=== PATIENT | male | born 1960 | race Caucasian/White ===

== ENCOUNTER 2018-05-29 20:41 | Emergency (ER) | payer BC ==
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
[2018-05-29] MEDS ORDERED: TETRACAINE HCL 0.5% 2ML OPTH ONE (21:22)
[2018-05-29] MEDS ORDERED: FLUORESCEIN SODIUM 0.6 MG/WRAP ONE (21:37)
[2018-05-29] MEDS ORDERED: HYDROCODONE/APAP 10/325 TAB ONE (21:49)
[2018-05-29] MEDS ORDERED: ERYTHROMYCIN 3.5GM OPTH OINT ONE (22:04)
--- NOTE | 2018-05-29 22:05 | EDPHYS ---
Physician Documentation [facility] Name: Remberto Diaz Age: 57 yrs Sex: Male : 1960 Arrival Date: 05/29/2018 Time: 20:45 Bed 15 Private MD: Sridhar Palmer V ED Physician Quoc Hobbs HPI: 05/29 21:45 This 57 yrs old Male presents to ER via Wheelchair with complaints of Foreign ps1 Body In Eye. 21:45 patient has FBS in bilateral eyes. Painful, rated as severe. History of recent cataract ps1 surgery in [place] 4 months ago. 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 . Historical: - Allergies: 21:09 No Known Allergies; aj1 - Home Meds: 21:09 Lexapro Oral [Active]; Allopurinol Oral [Active]; "cataract eye drops" [Active]; aj1 - PMHx: 21:09 Gout; aj1 - PSHx: 21:09 cataract surgery; aj1 21:12 elbow surgery; neck surgery; aj1 - Immunization history:: Flu vaccine is not up to date. - Ebola Screening: : Patient denies travel to an Ebola-affected area in the 21 days before illness onset. - Social history:: Smoking status: Patient uses tobacco products, unknown amount. ROS: 21:45 Constitutional: Negative for fever, chills, and weight loss, ENT: Negative for injury, ps1 pain, and discharge, Neck: Negative for injury, pain, and swelling, Cardiovascular: Negative for chest pain, palpitations, and edema, Respiratory: Negative for shortness of breath, cough, wheezing, and pleuritic chest pain, Abdomen/GI: Negative for abdominal pain, nausea, vomiting, diarrhea, and constipation, Back: Negative for injury and pain, MS/Extremity: Negative for injury and deformity, Skin: Negative for injury, rash, and discoloration, Neuro: Negative for headache, weakness, numbness, tingling, and seizure. 21:45 Eyes: Positive for foreign body sensation. Exam: 21:45 Constitutional: This is a well developed, well nourished patient who is awake, alert, ps1 and in no acute distress. Head/Face: Normocephalic, atraumatic. Cardiovascular: Regular rate and rhythm. No gallops, murmurs, or rubs. Normal PMI, no JVD. No pulse deficits. Respiratory: Lungs have equal breath sounds bilaterally, clear to auscultation and percussion. No rales, rhonchi or wheezes noted. No increased work of breathing, no retractions or nasal flaring. Abdomen/GI: Soft, non-tender, with normal bowel sounds. No distension or tympany. No guarding or rebound. No evidence of tenderness throughout. Skin: Warm, dry with normal turgor. Normal color with no rashes, no lesions, and no evidence of cellulitis. MS/ Extremity: Pulses equal, no cyanosis. Neurovascular intact. Full, normal range of motion. Neuro: Awake and alert, GCS 15, oriented to person, place, time, and situation. Cranial nerves II-XII grossly intact. Sensory grossly intact. 21:45 Psych: Behavior/mood is anxious. 21:45 Eyes: Conjunctiva: injected, pitting c/w UV keratitis. fluro demonstrated pitting. Pain ps1 completely resolved with tetracaine. Vital Signs: 21:09 BP 156 / 95; Pulse 91; Resp 20; Temp 97.2(TE); Pulse Ox 97% on R/A; Weight 104.33 kg aj1 (R); Height 6 ft. 1 in. (185.42 cm) (R); Pain 10/10; 22:20 BP 148 / 81; Pulse 90; Resp 20 S; Pulse Ox 97% on R/A; cc3 21:09 Body Mass Index 30.34 (104.33 kg, 185.42 cm) aj MDM: 21:45 Data reviewed: vital signs, nurses notes, and as a result, I will discharge patient, ps1 administer antibiotics e-mycin ointment and norco. 22:04 Patient medically screened. ps1 Administered Medications: 21:50 Drug: [place] 10 mg-325 mg 1 tabs Route: PO; cc3 22:30 Follow up: Response: No adverse reaction; Pain is decreased cc3 22:15 Drug: ERYTHromycin Ointment 1 application Route: Ophthalmic; Site: both eyes; cc3 22:30 Follow up: Response: No adverse reaction cc3 Disposition: 05/29/18 22:04 Discharged to Home. Impression: Ultraviolet Keratitis. - Condition is Stable. - Discharge Instructions: Ultraviolet Keratitis, Aeih-bd-Geki. - Prescriptions for ketorolac 0.5 % Ophthalmic drops - instill 1 drop by OPHTHALMIC route 4 times per day; 1 bottle. Tylenol- Codeine #3 300-30 mg Oral Tablet - take 2 tablet by ORAL route every 6 hours As needed; 30 tablet. Erythromycin 5 mg/gram (0.5 %) Ophthalmic Ointment - apply 1 centimeter by OPHTHALMIC route 2-3 times daily for 7 days; 1 tube. - Medication Reconciliation Form, Thank You Letter, Antibiotic Education, Prescription Opioid Use form. - Follow up: Emergency Department; When: As needed; Reason: Worsening of condition. Follow up: Private Physician; When: 48 Hours; Reason: Further diagnostic work-up, Recheck today's complaints, Continuance of care, Re-evaluation by your physician. - Problem is new. - Symptoms have improved. Signatures: Makeda Land, RN RN aj1 Quoc Hobbs MD MD ps1 Courtney Chen cc3 Corrections: (The following items were deleted from the chart) 21:59 21:45 Eyes: Conjunctiva: injected, pitting c/w UV keratitis. ps1 ps1 22:30 22:04 05/29/2018 22:04 Discharged to Home. Impression: Ultraviolet Keratitis. Condition cc3 is Stable. Forms are Medication Reconciliation Form, Thank You Letter, Antibiotic Education, Prescription Opioid Use. Follow up: Emergency Department; When: As needed; Reason: Worsening of condition. Follow up: Private Physician; When: 48 Hours; Reason: Further diagnostic work-up, Recheck today's complaints, Continuance of care, Re-evaluation by your physician. Problem is new. Symptoms have improved. ps1
--- NOTE | 2018-05-29 22:05 | ER ---
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 At first it was just the left eye, so he tried to flush that eye, but then both eyes began hurting, so he tried flushing both of his eye, but the pain just got worse. Patient will not open his eyes in triage, states that it hurts too bad. Patient also reports that he had cataract surgery 4 months ago. Transition of care: patient was not received from another setting of care. Onset of symptoms was May 29, 2018 at 15:00. Risk Assessment: Do you want to hurt yourself or someone else? Patient reports no desire to harm self or others. Initial Sepsis Screen: Does the patient meet any 2 criteria? No. Patient's initial sepsis screen is negative. Does the patient have a suspected source of infection? No. Patient's initial sepsis screen is negative. Care prior to arrival: None. 21:06 Method Of Arrival: Wheelchair aj1 21:06 Acuity: RAKESH 4 aj1 Triage Assessment: 21:09 General: Appears in no apparent distress. uncomfortable, Behavior is cooperative, aj1 anxious, restless. Pain: Complains of pain in right eye and left eye Pain currently is 10 out of 10 on a pain scale. EENT: Reports pain to both eyes, states that he feels like he got sand in his eyes. Neuro: Level of Consciousness is awake, alert, obeys commands. Cardiovascular: Patient's skin is warm and dry. Respiratory: Airway is patent Respiratory effort is even, unlabored, Respiratory pattern is regular, symmetrical. Historical: - Allergies: 21: No Known Allergies; aj1 - Home Meds: 21:09 Lexapro Oral [Active]; Allopurinol Oral [Active]; "cataract eye drops" [Active]; aj1 - PMHx: 21:09 Gout; aj1 - PSHx: 21:09 cataract surgery; aj1 21:12 elbow surgery; neck surgery; aj1 - Immunization history:: Flu vaccine is not up to date. - Ebola Screening: : Patient denies travel to an Ebola-affected area in the 21 days before illness onset. - Social history:: Smoking status: Patient uses tobacco products, unknown amount. Screenin:15 Abuse screen: Denies threats or abuse. Denies injuries from another. Nutritional cc3 screening: No deficits noted. Tuberculosis screening: No symptoms or risk factors identified. Fall Risk Ambulatory Aid- None/Bed Rest/Nurse Assist (0 pts). Gait- Normal/Bed Rest/Wheelchair (0 pts) Mental Status- Oriented to own ability (0 pts). Assessment: 21:15 General: Appears distressed, uncomfortable, Behavior is cooperative, anxious. Pain: cc3 Complains of pain in left eye and right eye. Neuro: Level of Consciousness is awake, alert, obeys commands, Oriented to person, place, time, situation, Appropriate for age. Cardiovascular: Denies chest pain. Respiratory: Airway is patent Respiratory effort is even, unlabored, Respiratory pattern is regular, symmetrical. GI: Abdomen is round obese. : No signs and/or symptoms were reported regarding the genitourinary system. EENT: Reports pain in right eye and left eye. Derm: No signs and/or symptoms reported regarding the dermatologic system. Musculoskeletal: Circulation, motion, and sensation intact. Range of motion: intact in all extremities. 22:30 Reassessment: Patient appears in no apparent distress at this time. Patient and/or cc3 family updated on plan of care and expected duration. Pain level reassessed. Patient is alert, oriented x 3, equal unlabored respirations, skin warm/dry/pink. Dr. Hobbs discharged the patient home with prescription given. No IV cannula in situ. Patient left ER vitally stable and ambulatory with his . Vital Signs: 21:09 BP 156 / 95; Pulse 91; Resp 20; Temp 97.2(TE); Pulse Ox 97% on R/A; Weight 104.33 kg aj1 (R); Height 6 ft. 1 in. (185.42 cm) (R); Pain 10/10; 22:20 BP 148 / 81; Pulse 90; Resp 20 S; Pulse Ox 97% on R/A; cc3 21:09 Body Mass Index 30.34 (104.33 kg, 185.42 cm) aj1 ED Course: 20:45 Patient arrived in ED. mr 20:45 Sridhar Palmer MD is Private Physician. mr 20:56 Quoc Hobbs MD is Attending Physician. ps1 21:08 Triage completed. aj1 21:09 Arm band placed on Patient placed in an exam room. aj1 21:15 Courtney Chen is Primary Nurse. cc3 21:15 Patient has correct armband on for positive identification. Bed in low position. Call cc3 light in reach. Side rails up X 1. Pulse ox on. NIBP on. 22:30 No provider procedures requiring assistance completed. Patient did not have IV access cc3 during this emergency room visit. Administered Medications: 21:50 Drug: [place] 10 mg-325 mg 1 tabs Route: PO; cc3 22:30 Follow up: Response: No adverse reaction; Pain is decreased cc3 22:15 Drug: ERYTHromycin Ointment 1 application Route: Ophthalmic; Site: both eyes; cc3 22:30 Follow up: Response: No adverse reaction cc3 Outcome: 22:04 Discharge ordered by . ps1 22:30 Patient left the ED. cc3 22:30 Discharged to home ambulatory, with family. cc3 22:30 Condition: stable 22:30 Discharge instructions given to patient, family, Instructed on discharge instructions, follow up and referral plans. medication usage, Demonstrated understanding of instructions, follow-up care, medications, Prescriptions given X 3. Signatures: Makeda Land RN RN aj Cyndy Vargas mr Quoc Hobbs MD MD ps1 Courtney Chen cc3
== END 2018-05-29 22:30 | disposition home or self-care (01) ==
LOC: ER 20:41
DX: H16.133 Photokeratitis, bilateral (principal); W89.8XXA Exposure to other man-made visible and ultraviolet light, initial encounter; Y99.0 Civilian activity done for income or pay; M10.9 Gout, unspecified; Z79.899 Other long term (current) drug therapy; Z72.0 Tobacco use
CPT/HCPCS: 99283

== ENCOUNTER 2018-08-07 01:18 | Emergency (ER) | payer BC ==
--- OUTSIDE RECORDS SUMMARY | 2018-08-07 01:21 | XMS REPORT | Clinical Summary ---
:1960 Author Organization [facility] Address [address] [place] [address] Care Team Providers Name Role Phone Asked, [...] Lipoma of neck (Primary PA-C Dx) after 08/06/2017 Family History Medical History Relation Name Comments [...] Last Done Comments COLON CANCER SCREENING 2011 SHINGLES VACCINES (1 of 2) 2011 INFLUENZA VACCINE 01/21/2018 Results Not on fileafter 08/06/2017 Insurance Payer Benefit Plan / Group Subscriber ID Type Phone Address BCBS BCBS CHOICE PPO/FEDERAL EMPL PPO xxxxxxxxxxxx PPO Advance Directives Patient has advance care planning documents on file. For more information, please contact:Steven [id number] [place] [address]
[2018-08-07] MEDS ORDERED: ASPIRIN 81 MG CHEWABLE TABLET ONE (01:36)
[2018-08-07] MEDS ORDERED: NA CHLORIDE 0.9% 1,000 ML ONE ×2 (01:38→03:11)
[2018-08-07 01:43] LABS: Protime INR 0.93
[2018-08-07] MEDS ORDERED: MORPHINE 4 MG/ML SYR ONE ×2 (01:44→01:59)
[2018-08-07] MEDS ORDERED: ONDANSETRON 4 MG/2 ML VIAL ONE (01:44)
[2018-08-07] MEDS ORDERED: CLOPIDOGREL 75 MG TABLET ONE (01:44)
[2018-08-07] MEDS ORDERED: HEPARIN 5000 UNIT/ML 1 ML VIAL ONE (01:52)
[2018-08-07] MEDS ORDERED: HEPARIN/D5W 25,000 UNIT/500 ML BAG IV ONE (01:52)
[2018-08-07 01:55] LABS: Absolute Lymphocytes (CBC) 6.3 K/uL (0.7-4.9); Absolute Monocytes 0.9 K/uL (0.1-1.3); Absolute Neutrophil 4.5 K/uL (1.8-8.0); Basophils % 0.5 % (0-1.3); Eosinophils % 1.8 % (0-4.4); Hematocrit 44.2 % (39.6-49.0); Lymphocytes % 52.3 % (15.3-44.8); MPV 7.6 fL (7.6-11.3); Monocytes % 7.6 % (3.3-12.3); RBC Red Blood Cell Count 4.83 M/uL (4.33-5.43)
[2018-08-07 01:57] LABS: ALT/SGPT 46 U/L (12-78); AST/SGOT 46 U/L (15-37); Albumin 3.8 g/dL (3.4-5.0); Alkaline Phosphatase 121 U/L (45-117); BUN Blood Urea Nitrogen 20 mg/dL (7-18); Bicarbonate 25 mmol/L (21-32); Bilirubin Direct < 0.1 mg/dL (0-0.2); Bilirubin Total 0.3 mg/dL (0.2-1.0); Glucose Level 205 mg/dL (74-106); NT PRO-BNP 69 pg/mL (<125); Potassium 3.8 mmol/L (3.5-5.1); Protein, Total 7.5 g/dL (6.4-8.2); Sodium Level 140 mmol/L (136-145); Troponin (Emerg Dept Use Only) 0.04 ng/mL (0.0-0.045)
[2018-08-07 02:08] LABS: Blood Morphology Comment NOT SEEN (NOT SEEN); Platelet Estimate ADEQ; Urine White Blood Cell Casts OK
--- NOTE | 2018-08-07 02:10 | EDPHYS ---
Physician Documentation [facility] Name: Remberto Diaz Age: 58 yrs Sex: Male : 1960 Arrival Date: 08/07/2018 Time: 01:25 Bed 19 Private MD: ED Physician Franky Ochoa HPI: 08/07 01:31 This 58 yrs old Male presents to ER via Unassigned with complaints of chest tw4 pain. 01:31 The patient or guardian reports chest pain that is located primarily in the anterior tw4 chest wall. Onset: today. The pain does not radiate. Associated signs and symptoms: The patient has no apparent associated signs or symptoms. The chest pain is described as aching, a heaviness. Duration: The patient or guardian reports a single episode, that is now resolved. Modifying factors: The symptoms are alleviated by nothing. the symptoms are aggravated by nothing. Severity of pain: At its worst the pain was moderate in the emergency department the pain is unchanged. Historical: - Allergies: 01:20 No Known Allergies; jb4 - Home Meds: 01:20 "cataract eye drops" [Active]; Allopurinol Oral [Active]; Lexapro Oral [Active]; jb4 - PMHx: 01:20 Gout; jb4 - PSHx: 01:20 heart cath; Cholecystectomy; jb4 - Immunization history:: Adult Immunizations up to date, . - Social history:: Smoking status: Patient uses tobacco products, smokes one pack cigarettes per day. Patient uses alcohol, but reports only rare drinking. - Ebola Screening: : No symptoms or risks identified at this time. ROS: 01:53 Constitutional: Negative for fever, chills, and weight loss, Eyes: Negative for injury, tw4 pain, redness, and discharge, Respiratory: Negative for shortness of breath, cough, wheezing, and pleuritic chest pain, Abdomen/GI: Negative for abdominal pain, nausea, vomiting, diarrhea, and constipation, Back: Negative for injury and pain, MS/Extremity: Negative for injury and deformity, Skin: Negative for injury, rash, and discoloration, Neuro: Negative for headache, weakness, numbness, tingling, and seizure. 01:53 Cardiovascular: Positive for chest pain, Negative for edema, orthopnea, palpitations, paroxysmal nocturnal dyspnea. Exam: 01:53 Constitutional: This is a well developed, well nourished patient who is awake, alert, tw4 and in no acute distress. Head/Face: Normocephalic, atraumatic. Chest/axilla: Normal chest wall appearance and motion. Nontender with no deformity. No lesions are appreciated. Cardiovascular: Regular rate and rhythm with a normal S1 and S2. No gallops, murmurs, or rubs. Normal PMI, no JVD. No pulse deficits. Respiratory: Lungs have equal breath sounds bilaterally, clear to auscultation and percussion. No rales, rhonchi or wheezes noted. No increased work of breathing, no retractions or nasal flaring. Abdomen/GI: Soft, non-tender, with normal bowel sounds. No distension or tympany. No guarding or rebound. No evidence of tenderness throughout. Back: No spinal tenderness. No costovertebral tenderness. Full range of motion. MS/ Extremity: Pulses equal, no cyanosis. Neurovascular intact. Full, normal range of motion. Neuro: Awake and alert, GCS 15, oriented to person, place, time, and situation. Cranial nerves II-XII grossly intact. Motor strength 5/5 in all extremities. Sensory grossly intact. Cerebellar exam normal. Normal gait. Psych: Awake, alert, with orientation to person, place and time. Behavior, mood, and affect are within normal limits. Vital Signs: 01:35 BP 167 / 92; Pulse 93; Resp 24; Temp 97.8(O); Pulse Ox 100% on R/A; Height 6 ft. mt (182.88 cm); Pain 8/10; 01:46 Weight 105.1 kg (M); bb 01:55 BP 173 / 102; Pulse 100; Resp 28; Pulse Ox 99% on R/A; mt 02:00 BP 160 / 101; Pulse 94; Resp 28; Pulse Ox 95% on R/A; mt 02:15 BP 142 / 83; Pulse 104; Resp 18; Pulse Ox 96% on R/A; jb4 01:35 Body Mass Index 31.42 (105.10 kg, 182.88 cm) ca MDM: 01:27 Patient medically screened. tw4 01:53 Differential diagnosis: acute myocardial infarction, acute pericarditis, chest wall tw4 pain. The patient was given aspirin in the Emergency Department. Data reviewed: vital signs, nurses notes. Data interpreted: Pulse oximetry:. Test interpretation: by ED physician or midlevel provider: ECG. Counseling: I had a detailed discussion with the patient and/or guardian regarding: the historical points, exam findings, and any diagnostic results supporting the discharge/admit diagnosis, lab results, radiology results. ED course: Pt comes to ED with compliant of CP for one hour. EKG reveal STEMI inferior and lateral. Pt received ASA, Plavix, and heparin. Discussed with Dr Hull who agrees with transfer and treatment plan and accepts for transfer to [facility] at 0135. 08/07 01:28 Order name: Basic Metabolic Panel tw4 08/07 01:28 Order name: CBC with Diff tw4 08/07 01:28 Order name: LFT's tw4 08/07 01:28 Order name: Magnesium tw4 08/07 01:28 Order name: NT PRO-BNP tw4 08/07 01:28 Order name: PT-INR tw4 08/07 01:28 Order name: Troponin (emerg Dept Use Only) tw4 08/07 01:28 Order name: XRAY Chest (1 view) tw4 08/07 02:08 Order name: CBC Smear Scan EDUT 08/07 01:28 Order name: EKG; Complete Time: 01:30 08/07 01:28 Order name: Cardiac monitoring; Complete Time: 01:30 08/07 01:28 Order name: EKG - Nurse/Tech; Complete Time: 01:30 08/07 01:28 Order name: IV Saline Lock; Complete Time: 01:30 08/07 01:28 Order name: Labs collected and sent; Complete Time: 01:30 08/07 01:28 Order name: O2 Per Protocol; Complete Time: 01:30 08/07 01:28 Order name: O2 Sat Monitoring; Complete Time: 01:30 EC:53 Rate is 96 beats/min. Rhythm is regular. QRS Eunice is Normal. VA interval is normal. QT tw4 interval is normal. No Q waves. T waves are Normal. ST Segment is elevated in leads II, III, aVF, V2. ST Segment is depressed in leads I, aVL. Clinical impression: Inferior NC - acute. Interpreted by me. Reviewed by me. Administered Medications: 01:25 Drug: NS 0.9% 1000 ml Route: IV; Rate: 1 bolus; Site: left antecubital; jb4 02:00 Follow up: Response: No adverse reaction; IV Status: Completed infusion jb4 01:30 Drug: Aspirin Chewable Tablet 324 mg Route: PO; jb4 02:46 Follow up: Response: No adverse reaction jb4 01:40 Drug: PlaVIX 300 mg Route: PO; rv 02:44 Follow up: Response: No adverse reaction jb4 02:46 Follow up: Response: No adverse reaction jb4 01:40 Drug: morphine 4 mg Route: IVP; Site: left antecubital; rv 02:46 Follow up: Response: No adverse reaction; Pain is decreased jb4 01:40 Drug: Zofran 4 mg Route: IVP; Site: left antecubital; rv 02:45 Follow up: Response: No adverse reaction; Nausea is decreased jb4 01:42 Drug: Heparin (NC-Bolus No thrombolytic) - HEParin 60 units/kg {Co-Signature: rv jb4 (Dario Bacon RN).} Route: IVP; Site: left antecubital; 02:44 Follow up: Response: No adverse reaction jb4 01:42 Drug: Heparin (NC Drip) 12 units/kg/hr - (HEParin 72080 units, D5W 500 ml) rv {Co-Signature: ak1 (Jelena Rai RN).} Route: IV; Rate: calculated rate; Site: left antecubital; 02:43 Follow up: Response: No adverse reaction; IV Status: Infusion continued upon transfer jb4 01:48 Drug: morphine 4 mg Route: IVP; Site: right forearm; jb4 02:16 Follow up: Response: No adverse reaction; Pain is decreased jb4 02:00 Drug: NS 0.9% 1000 ml Route: IV; Rate: 100 ml/hr; Site: left antecubital; jb4 02:43 Follow up: Response: No adverse reaction; IV Status: Order to discontinue infusion; jb4 Discontinued by life flight nurse. Disposition: 08/07/18 02:[address] [facility]. Diagnosis is ST elevation (STEMI) myocardial infarction of inferior wall. - Reason for transfer: Higher level of care. - Accepting physician is Dr Hull. - Condition is Stable. - Problem is new. - Symptoms have improved. Signatures: Dispatcher [employer] Angelika Thomas RN RN Dima Foley RN RN jb4 Franky Ochoa MD MD tw4 Dario Bacon RN RN rv Dario Bacon RN rv Jelena Rai RN ak1 Corrections: (The following items were deleted from the chart) 02:48 02:10 08/07/2018 02:[address] [facility]. Diagnosis is jb4 ST elevation (STEMI) myocardial infarction of inferior wall. Reason for transfer: Higher level of care. Accepting physician is Dr Hull. Condition is Stable. Problem is new. Symptoms have improved. tw4
--- NOTE | 2018-08-07 02:10 | ER ---
Nurse's Notes [facility] Name: Remberto Diaz Age: 58 yrs Sex: Male : 1960 Arrival Date: 08/07/2018 Time: 01:25 Bed 19 Private MD: Diagnosis: ST elevation (STEMI) myocardial infarction of inferior wall Presentation: 08/07 01:20 Presenting complaint: Patient states: I have a pressure like pain in my chest that jb4 started about an hour before I got here. It radiates to my shoulders. I thought it was gas so I took some anti gas medication at home. 01:20 Transition of care: patient was not received from another setting of care. Onset of jb4 symptoms was August 07, 2018 at 00:00. Risk Assessment: Do you want to hurt yourself or someone else? Patient reports no desire to harm self or others. Initial Sepsis Screen: Does the patient meet any 2 criteria? HR > 90 bpm. Yes Does the patient have a suspected source of infection? No. Patient's initial sepsis screen is negative. Care prior to arrival: None. 01:20 Method Of Arrival: Wheelchair jb4 01:20 Acuity: RAKESH 1 jb4 Triage Assessment: 01:20 General: Appears distressed, uncomfortable, Behavior is cooperative, anxious, restless. jb4 Pain: Complains of pain in chest Pain radiates to left scapular area and right scapular area Pain currently is 8 out of 10 on a pain scale. Quality of pain is described as pressure, Pain began 1 hour ago. Is intermittent. EENT: No signs and/or symptoms were reported regarding the EENT system. Neuro: Level of Consciousness is awake, alert, obeys commands, Oriented to person, place, time, situation. Cardiovascular: Reports chest pain, Patient's skin is warm and dry. Rhythm is sinus rhythm Chest pain is described as severe, quality is pressure, is located in right anterior radiates to bilateral scapula began 1 hour prior to arrival episodes are intermittent continuous after arrival. Respiratory: Airway is patent Respiratory effort is even, unlabored, Respiratory pattern is regular, symmetrical. GI: Reports upper abdominal pain, gaseousness, indigestion. : No signs and/or symptoms were reported regarding the genitourinary system. Derm: Skin is intact, Skin is clammy, Skin is normal, Skin temperature is warm. Musculoskeletal: Circulation, motion, and sensation intact. Historical: - Allergies: 01:20 No Known Allergies; jb4 - Home Meds: 01:20 "cataract eye drops" [Active]; Allopurinol Oral [Active]; Lexapro Oral [Active]; jb4 - PMHx: 01:20 Gout; jb4 - PSHx: 01:20 heart cath; Cholecystectomy; jb4 - Immunization history:: Adult Immunizations up to date, . - Social history:: Smoking status: Patient uses tobacco products, smokes one pack cigarettes per day. Patient uses alcohol, but reports only rare drinking. - Ebola Screening: : No symptoms or risks identified at this time. Screenin:20 Abuse screen: Denies threats or abuse. Nutritional screening: No deficits noted. jb4 Tuberculosis screening: No symptoms or risk factors identified. Fall Risk Fall in past 12 months (25 points). Total Martinez Fall Scale indicates Low Risk Score (25-44 pts). Fall prevention measures have been instituted. Side Rails Up X 2 Placed close to Nursing Station Frequent Obs/Assesments occuring Family Present and informed to notify staff if they need to leave bedside. Assessment: 01:20 General: see triage assessment.. jb4 02:20 Reassessment: Patient appears in no apparent distress at this time. Patient and/or jb4 family updated on plan of care and expected duration. Pain level reassessed. Pt is still having shoulder pain. The morphine has helped alleviate other pains. Family is at the bedside. Pt appears to be more relaxed now than upon arrival. Respirations are even and unlabored. Skin is warm and dry. Vital Signs: 01:35 BP 167 / 92; Pulse 93; Resp 24; Temp 97.8(O); Pulse Ox 100% on R/A; Height 6 ft. mt (182.88 cm); Pain 8/10; 01:46 Weight 105.1 kg (M); bb 01:55 BP 173 / 102; Pulse 100; Resp 28; Pulse Ox 99% on R/A; mt 02:00 BP 160 / 101; Pulse 94; Resp 28; Pulse Ox 95% on R/A; mt 02:15 BP 142 / 83; Pulse 104; Resp 18; Pulse Ox 96% on R/A; jb4 01:35 Body Mass Index 31.42 (105.10 kg, 182.88 cm) nc ED Course: 01:20 Arm band placed on left wrist. EKG completed in triage. Results shown to MD. jb4 01:20 Patient has correct armband on for positive identification. Placed in gown. Bed in low jb4 position. Call light in reach. Side rails up X 1. telemetry monitor on. Pulse ox on. NIBP on. 01:25 Patient arrived in ED. rr5 01:25 EKG done, by ED staff, reviewed by Franky Ochoa MD. mt 01:27 Franky Ochoa MD is Attending Physician. tw4 01:30 Inserted saline lock: 20 gauge in right antecubital area, using aseptic technique. mt Blood collected. 01:34 Dima Foley, RACHELLE is Primary Nurse. jb4 01:37 Triage completed. jb4 01:40 Inserted saline lock: 20 gauge in left antecubital area, using aseptic technique. mt 01:55 XRAY Chest (1 view) In Process Unspecified. EDMS 02:47 No provider procedures requiring assistance completed. Patient transferred, IV remains jb4 in place. Administered Medications: 01:25 Drug: NS 0.9% 1000 ml Route: IV; Rate: 1 bolus; Site: left antecubital; jb4 02:00 Follow up: Response: No adverse reaction; IV Status: Completed infusion jb4 01:30 Drug: Aspirin Chewable Tablet 324 mg Route: PO; jb4 02:46 Follow up: Response: No adverse reaction jb4 01:40 Drug: PlaVIX 300 mg Route: PO; rv 02:44 Follow up: Response: No adverse reaction jb4 02:46 Follow up: Response: No adverse reaction jb4 01:40 Drug: morphine 4 mg Route: IVP; Site: left antecubital; rv 02:46 Follow up: Response: No adverse reaction; Pain is decreased jb4 01:40 Drug: Zofran 4 mg Route: IVP; Site: left antecubital; rv 02:45 Follow up: Response: No adverse reaction; Nausea is decreased jb4 01:42 Drug: Heparin (CT-Bolus No thrombolytic) - HEParin 60 units/kg {Co-Signature: rv jb4 (Dario Bacon RN).} Route: IVP; Site: left antecubital; 02:44 Follow up: Response: No adverse reaction jb4 01:42 Drug: Heparin (CT Drip) 12 units/kg/hr - (HEParin 13994 units, D5W 500 ml) rv {Co-Signature: ak1 (Jelena Rai RN).} Route: IV; Rate: calculated rate; Site: left antecubital; 02:43 Follow up: Response: No adverse reaction; IV Status: Infusion continued upon transfer jb4 01:48 Drug: morphine 4 mg Route: IVP; Site: right forearm; jb4 02:16 Follow up: Response: No adverse reaction; Pain is decreased jb4 02:00 Drug: NS 0.9% 1000 ml Route: IV; Rate: 100 ml/hr; Site: left antecubital; jb4 02:43 Follow up: Response: No adverse reaction; IV Status: Order to discontinue infusion; jb4 Discontinued by life flight nurse. Intake: Outcome: 02:10 ER care complete, transfer ordered by . tw4 02:47 Transferred by helicopter to [facility]. jb4 02:47 Condition: stable 02:47 Discharge instructions given to patient, family, Instructed on the need for transfer, Demonstrated understanding of instructions. 02:48 Patient left the ED. jb4 Signatures: Dispatcher [employer] EDMS Angelika Enciso RN Dima Valle RN RN Deyanira Miller mt, Terrence, MD MD tw4 Dario Bacon RN RN Glenn Cervantes RN RN rr5 Dario Bacon RN Jelena Rai RN ak1 Corrections: (The following items were deleted from the chart) 02:02 01:35 BP 167 / 92; Pulse 93bpm; Resp 24bpm; Pulse Ox 100% RA; [facility] 02:03 01:40 EKG done, [facility] 02:04 01:30 EKG done, by ED staff, reviewed by Franky Ochoa MD [facility]
--- NOTE | 2018-08-07 10:16 | RAD REPORT ---
EXAM DESCRIPTION: RAD - Chest Single View - 08/07/2018 1:54 am CLINICAL HISTORY: Chest pain COMPARISON: None. TECHNIQUE: AP portable chest image was obtained 0150 hours . FINDINGS: Lung volumes are low. This accentuates lung markings. No focal consolidation or mass. Hear t size is upper normal and vasculature is upper normal. Both are accentuated due to the shallow inspi ration. Trachea is midline. No measurable pleural effusion and no pneumothorax. No acute bony abnorma lity seen. No acute aortic findings suspected. IMPRESSION: Shallow inspiration portable imaging without peripheral mass or consolidation. Heart, vasculature and central lung markings are accentuated by body habitus and shallow inspiration. Minimal edema or minimal infiltrate are potentially masked.
--- NOTE | 2018-08-07 16:22 | EKG ---
Test Date: 2018-08-07 Test Time: 01:20:46 Director Digital Marketing: SANTO MEASUREMENT RESULTS: Intervals: Rate: 96 CT: 140 QRSD: 100 QT: 342 QTc: 432 [place]: P: 50 CT: 140 QRS: 83 T: 98 INTERPRETIVE STATEMENTS: Normal sinus rhythm Inferior infarct, possibly acute Cannot rule out Anterior infarct, age undetermined Lateral injury pattern ACUTE CT Consider right ventricular involvement in acute inferior infarct Abnormal ECG No previous ECG available for comparison Electronically Signed On 08-07-18 16:20:50 [employer] by Hai Coronado
== END 2018-08-07 02:48 | disposition short-term general hospital (02) ==
LOC: ER 01:18
DX: I21.19 ST elevation (STEMI) myocardial infarction involving other coronary artery of inferior wall (principal); F17.210 Nicotine dependence, cigarettes, uncomplicated
CPT/HCPCS: 36415; 71045; 80048; 80076; 83735; 83880; 84484; 85025; 85610; 93005; 99291; J1644; J2405; J7030

== ENCOUNTER 2019-07-25 10:02 | Emergency (ER) | payer BC ==
--- OUTSIDE RECORDS SUMMARY | 2019-07-25 10:05 | XMS REPORT ---
:1960 Author Organization [facility] Address [address] [place] [address] [address] Care Team Providers Name Role Phone MEHRDAD ARGUELLO Unavailable Unavailable LANDEN FRAZIER Unavailable Unavailable Problems This patient has no known problems. Allergies, Adverse Reactions, Alerts This patient has no known allergies or adverse reactions. Medications This patient has no known medications. Results Test Description Test Time Test Comments Text Results Atomic Results Result Comments TISSUE EXAM 2019-06-25 15:32:00 Surgical Pathology Report Case: [id number] Authorizing Provider: Mehrdad Arguello MD Collected: 06/22/2019 0952 Ordering Location: [facility] PERI[facility] Received: 06/22/2019 1008 SERVICES Pathologist: Farooq Hahn MD Specimen: Soft Tissue, Other, POSTERIOR NECK MASS PART A POSTERIOR NECK MASS, EXCISION:MATURE ADIPOSE TISSUE COMPATIBLE WITH WELL DIFFERENTIATED LIPOMA. Signing Pathologist Direct Phone Line: [phone] signed by Farooq Hahn MD on 06/25/2019 at 3:32 [id number] Diagnosis: Lipoma of neckSoft tissue, other Received in formalin labeled with the patient's name, accession number and "posterior neck mass" is a 13.0 x 7.0 x 3.0 cm monteiro-yellow lobulated, previously disrupted soft tissue. Sectioning reveals a monteiro-yellow lobulated, focally hemorrhagic cut surface. Defence Intelligence Analyst sections are submitted in A1-A7, some with multiple sections per cassette. JF/bc PERFORMED. [facility] [place], Department of Pathology, [address] [place] [address], [facility], [address] [place] [id number], [facility], [address] [place] [address], [place] [address], BASIC METABOLIC PANEL 2019-06-22 08:18:00 Test Item Value Reference Range Comments SODIUM (BEAKER) (test 135 meq/L 136-145 aepx=247) POTASSIUM (BEAKER) (test 5.1 meq/L 3.5-5.1 Specimen markedly hemolyzed calx=780) CHLORIDE (BEAKER) (test 107 meq/L 98-107 mhyr=541) CO2 (BEAKER) (test 19 meq/L 22-29 ibsf=450) BLOOD UREA NITROGEN 18 mg/dL 7-21 (BEAKER) (test ewph=529) CREATININE (BEAKER) (test 0.72 mg/dL 0.57-1.25 Specimen markedly hemolyzed tzid=117) GLUCOSE RANDOM (BEAKER) 152 mg/dL 70-105 (test sxof=750) CALCIUM (BEAKER) (test 8.7 mg/dL 8.4-10.2 ouoo=313) EGFR (BEAKER) (test 113 mL/min/1.73 sq m INSUFFICIENT CLINICAL DATA xedd=8428) TO CALCULATE ESTIMATED GFR. CBC W/PLT COUNT & AUTO [id number] 07:32:00 Test Item Value Reference Range Comments WHITE BLOOD CELL COUNT (BEAKER) (test rqcn=640) 7.6 K/ L 3.5-10.5 RED BLOOD CELL COUNT (BEAKER) (test ugof=484) 4.80 M/ L 4.63-6.08 HEMOGLOBIN (BEAKER) (test wiby=555) 15.5 GM/DL 13.7-17.5 HEMATOCRIT (BEAKER) (test pqgw=809) 43.3 % 40.1-51.0 MEAN CORPUSCULAR VOLUME (BEAKER) (test vpqq=939) 90.2 fL 79.0-92.2 MEAN CORPUSCULAR HEMOGLOBIN (BEAKER) (test 32.3 pg 25.7-32.2 lamu=479) MEAN CORPUSCULAR HEMOGLOBIN CONC (BEAKER) (test 35.8 GM/DL 32.3-36.5 zlfj=071) RED CELL DISTRIBUTION WIDTH (BEAKER) (test 13.4 % 11.6-14.4 nrpw=096) PLATELET COUNT (BEAKER) (test mvpf=357) 265 K/CU MM 150-450 MEAN PLATELET VOLUME (BEAKER) (test nfbx=240) 9.9 fL 9.4-12.4 NUCLEATED RED BLOOD CELLS (BEAKER) (test 0 /100 WBC 0-0 tjqw=778) NEUTROPHILS RELATIVE PERCENT (BEAKER) (test 47 % nbus=811) LYMPHOCYTES RELATIVE PERCENT (BEAKER) (test 38 % mxvj=907) MONOCYTES RELATIVE PERCENT (BEAKER) (test 10 % fdzj=788) EOSINOPHILS RELATIVE PERCENT (BEAKER) (test 4 % ydnm=692) BASOPHILS RELATIVE PERCENT (BEAKER) (test 1 % ygha=825) NEUTROPHILS ABSOLUTE COUNT (BEAKER) (test 3.54 K/ L 1.78-5.38 tarr=431) LYMPHOCYTES ABSOLUTE COUNT (BEAKER) (test 2.84 K/ L 1.32-3.57 cabg=328) MONOCYTES ABSOLUTE COUNT (BEAKER) (test 0.74 K/ L 0.30-0.82 tzrs=854) EOSINOPHILS ABSOLUTE COUNT (BEAKER) (test 0.28 K/ L 0.04-0.54 pwqc=031) BASOPHILS ABSOLUTE COUNT (BEAKER) (test 0.07 K/ L 0.01-0.08 dluz=398) IMMATURE GRANULOCYTES-RELATIVE PERCENT (BEAKER) 1 % 0-1 (test gchx=6486) CT, SOFT TISSUE NECK, [id number] 14:06:00FINAL REPORT CT, SOFT TISSUE NECK, CONTRAST INDICATION: LIPOMA OF NECK TECHNIQUE: Postcontrast CT images of the cervical soft tissues. Multiplanar, orthogonal reformatted imageswere generated. DOSE REDUCTION: Dose modulation, iterative reconstruction, and/or weight-based adjustment of the mA/kV was utilized to reduce the radiation dose to as low as reasonably achievable. COMPARISON: None FINDINGS: 4.9 x 3.5 x 5.4 cm well-circumscribed lesion within the left posterior neck with attenuation compatible with fat is most consistent with a lipoma. Nasopharynx: Clear.Suprahyoid neck: Unremarkable oropharynx, oral cavity , parapharyngeal spaces and retropharyngeal space.Infrahyoidneck: Unremarkable larynx, hypopharynx and supraglottis.Thyroid: Normal.Thoracic inlet: No apical opacity.Lymph nodes: No adenopathy.Vascular structures: Normal.Orbits, paranasal sinuses and skull base: No acute orbital abnormality. Visible sinuses are clear. Unremarkable skull base. Additional findings: None. IMPRESSION: 4.9 x 3.5 x 5.4 cm well-circumscribed lesion within the left posterior neck with attenuation compatible with fat is most consistent with a lipoma. Signed: Zoila Coyle MDReport Verified Date/Time: 04/20/2019 14:06:36 Reading Location: [facility] Radiology Reading Room [id number] 13:54:00 Test Item Value Reference Range Comments POC-CREATININE (BEAKER) 0.7 mg/dL 0.6-1.3 TESTED AT [facility] 2457 (test mtmj=5811) [facility] [address] POC-EGFR (BEAKER) (test 116 mL/min/1.73M2 nlte=5014) T4, [id number] 08:26:00 Test Item Value Reference Range Comments FREE T4 (BEAKER) (test ecdh=266) 0.77 ng/dL 0.70-1.48 TSH/FREE T4 IF [id number] 07:23:00 Test Item Value Reference Range Comments THYROID STIMULATING HORMONE (BEAKER) (test 7.79 uIU/mL 0.35-4.94 venp=540) [id number] 06:23:00 Test Item Value Reference Range Comments MAGNESIUM (BEAKER) (test jacx=452) 2.0 mg/dL 1.6-2.6 BASIC METABOLIC [id number] 06:23:00 Test Item Value Reference Range Comments SODIUM (BEAKER) (test 136 meq/L 136-145 yiil=746) POTASSIUM (BEAKER) (test 4.6 meq/L 3.5-5.1 vnju=111) CHLORIDE (BEAKER) (test 104 meq/L 98-107 cpfr=156) CO2 (BEAKER) (test 25 meq/L 22-29 jyrd=507) BLOOD UREA NITROGEN 14 mg/dL 7-21 (BEAKER) (test gdly=311) CREATININE (BEAKER) (test 0.70 mg/dL 0.57-1.25 klma=105) GLUCOSE RANDOM (BEAKER) 107 mg/dL 70-105 (test tyth=145) CALCIUM (BEAKER) (test 9.5 mg/dL 8.4-10.2 eldg=573) EGFR (BEAKER) (test 116 mL/min/1.73 sq m ESTIMATED GFR IS NOT wbss=1755) ACCURATE CREATININE CLEARANCE IN PREDICTING GLOMERULAR FILTRATION RATE. ESTIMATED GFR IS NOT APPLICABLE FOR DIALYSIS PATIENTS. CBC W/PLT COUNT & AUTO [id number] 05:55:00 Test Item Value Reference Range Comments WHITE BLOOD CELL COUNT (BEAKER) (test yanu=127) 7.5 K/ L 3.5-10.5 RED BLOOD CELL COUNT (BEAKER) (test pdqe=210) 4.40 M/ L 4.63-6.08 HEMOGLOBIN (BEAKER) (test wnrv=809) 13.4 GM/DL 13.7-17.5 HEMATOCRIT (BEAKER) (test agnw=585) 40.3 % 40.1-51.0 MEAN CORPUSCULAR VOLUME (BEAKER) (test zebh=049) 91.6 fL 79.0-92.2 MEAN CORPUSCULAR HEMOGLOBIN (BEAKER) (test 30.5 pg 25.7-32.2 hnsu=899) MEAN CORPUSCULAR HEMOGLOBIN CONC (BEAKER) (test 33.3 GM/DL 32.3-36.5 mrav=571) RED CELL DISTRIBUTION WIDTH (BEAKER) (test 12.6 % 11.6-14.4 iirh=014) PLATELET COUNT (BEAKER) (test bcft=788) 221 K/CU MM 150-450 MEAN PLATELET VOLUME (BEAKER) (test kryk=393) 9.0 fL 9.4-12.4 NUCLEATED RED BLOOD CELLS (BEAKER) (test 0 /100 WBC 0-0 rymk=923) NEUTROPHILS RELATIVE PERCENT (BEAKER) (test 49 % rvgt=324) LYMPHOCYTES RELATIVE PERCENT (BEAKER) (test 38 % aujt=050) MONOCYTES RELATIVE PERCENT (BEAKER) (test 10 % rstw=188) EOSINOPHILS RELATIVE PERCENT (BEAKER) (test 2 % ygkc=751) BASOPHILS RELATIVE PERCENT (BEAKER) (test 1 % xuia=856) NEUTROPHILS ABSOLUTE COUNT (BEAKER) (test 3.66 K/ L 1.78-5.38 azfj=877) LYMPHOCYTES ABSOLUTE COUNT (BEAKER) (test 2.80 K/ L 1.32-3.57 pmnl=907) MONOCYTES ABSOLUTE COUNT (BEAKER) (test 0.73 K/ L 0.30-0.82 xpde=776) EOSINOPHILS ABSOLUTE COUNT (BEAKER) (test 0.18 K/ L 0.04-0.54 culj=257) BASOPHILS ABSOLUTE COUNT (BEAKER) (test 0.04 K/ L 0.01-0.08 anxs=871) IMMATURE GRANULOCYTES-RELATIVE PERCENT (BEAKER) 1 % 0-1 (test yvxp=6809) TROPONIN [id number] 03:13:00 Test Item Value Reference Range Comments TROPONIN I (BEAKER) (test gzxc=694) 6.51 ng/mL 0.00-0.03 Troponin I (TnI) levels must be interpreted in the context of the presenting symptoms and the clinical findings. Elevated TnI levels indicate myocardial damage, but are not specific for ischemic heart disease. Elevated TnI levels are seen in patients with other cardiac conditions (including myocarditis and congestive heart failure), and slight TnI elevations occur in patients with other conditions, including sepsis, renal failure, acidosis, acute neurological disease, and persistent tachyarrhythmia.TSH/FREE T4 IF [id number] 02:55 :00 Test Item Value Reference Range Comments THYROID STIMULATING HORMONE (BEAKER) (test 3.25 uIU/mL 0.35-4.94 ajfb=880) [id number] 02:31:00 Test Item Value Reference Range Comments MAGNESIUM (BEAKER) (test 2.0 mg/dL 1.6-2.6 Specimen slightly hemolyzed agul=311) BASIC METABOLIC [id number] 02:31:00 Test Item Value Reference Range Comments SODIUM (BEAKER) (test 136 meq/L 136-145 ghyy=787) POTASSIUM (BEAKER) (test 4.3 meq/L 3.5-5.1 Specimen slightly vqjs=165) hemolyzed CHLORIDE (BEAKER) (test 104 meq/L 98-107 hswz=703) CO2 (BEAKER) (test 23 meq/L 22-29 qflz=846) BLOOD UREA NITROGEN 16 mg/dL 7-21 (BEAKER) (test wrea=175) CREATININE (BEAKER) (test 0.69 mg/dL 0.57-1.25 Specimen slightly apax=081) hemolyzed GLUCOSE RANDOM (BEAKER) 116 mg/dL 70-105 (test hlha=841) CALCIUM (BEAKER) (test 9.2 mg/dL 8.4-10.2 qmko=437) EGFR (BEAKER) (test 118 mL/min/1.73 sq m ESTIMATED GFR IS NOT xvfo=2785) ACCURATE CREATININE CLEARANCE IN PREDICTING GLOMERULAR FILTRATION RATE. ESTIMATED GFR IS NOT APPLICABLE FOR DIALYSIS PATIENTS. CBC W/PLT COUNT & AUTO [id number] 01:26:00 Test Item Value Reference Range Comments WHITE BLOOD CELL COUNT (BEAKER) (test hehp=108) 10.3 K/ L 3.5-10.5 RED BLOOD CELL COUNT (BEAKER) (test jhto=981) 4.28 M/ L 4.63-6.08 HEMOGLOBIN (BEAKER) (test qyox=738) 13.2 GM/DL 13.7-17.5 HEMATOCRIT (BEAKER) (test role=646) 39.5 % 40.1-51.0 MEAN CORPUSCULAR VOLUME (BEAKER) (test wtyz=680) 92.3 fL 79.0-92.2 MEAN CORPUSCULAR HEMOGLOBIN (BEAKER) (test 30.8 pg 25.7-32.2 eeyq=031) MEAN CORPUSCULAR HEMOGLOBIN CONC (BEAKER) (test 33.4 GM/DL 32.3-36.5 wbpk=820) RED CELL DISTRIBUTION WIDTH (BEAKER) (test 13.0 % 11.6-14.4 sghn=513) PLATELET COUNT (BEAKER) (test vmex=711) 226 K/CU MM 150-450 MEAN PLATELET VOLUME (BEAKER) (test qhoa=772) 9.3 fL 9.4-12.4 NUCLEATED RED BLOOD CELLS (BEAKER) (test 0 /100 WBC 0-0 ozwo=102) NEUTROPHILS RELATIVE PERCENT (BEAKER) (test 62 % yvej=082) LYMPHOCYTES RELATIVE PERCENT (BEAKER) (test 28 % lcbt=206) MONOCYTES RELATIVE PERCENT (BEAKER) (test 8 % ytuc=797) EOSINOPHILS RELATIVE PERCENT (BEAKER) (test 1 % kito=704) BASOPHILS RELATIVE PERCENT (BEAKER) (test 0 % ocjc=843) NEUTROPHILS ABSOLUTE COUNT (BEAKER) (test 6.42 K/ L 1.78-5.38 hiul=195) LYMPHOCYTES ABSOLUTE COUNT (BEAKER) (test 2.85 K/ L 1.32-3.57 fioz=740) MONOCYTES ABSOLUTE COUNT (BEAKER) (test 0.82 K/ L 0.30-0.82 dgqx=730) EOSINOPHILS ABSOLUTE COUNT (BEAKER) (test 0.11 K/ L 0.04-0.54 vtqk=167) BASOPHILS ABSOLUTE COUNT (BEAKER) (test 0.04 K/ L 0.01-0.08 zwdy=589) IMMATURE GRANULOCYTES-RELATIVE PERCENT (BEAKER) 0 % 0-1 (test lmlh=3040) TROPONIN [id number] 19:07:00 Test Item Value Reference Range Comments TROPONIN I (AKER) (test dfqf=125) 9.06 ng/mL 0.00-0.03 Troponin I (TnI) levels must be interpreted in the context of the presenting symptoms and the clinical findings. Elevated TnI levels indicate myocardial damage, but are not specific for ischemic heart disease. Elevated TnI levels are seen in patients with other cardiac conditions (including myocarditis and congestive heart failure), and slight TnI elevations occur in patients with other conditions, including sepsis, renal failure, acidosis, acute neurological disease, and persistent tachyarrhythmia.TROPONIN [id number] 12:32:00 Test Item Value Reference Range Comments TROPONIN I ([facility]) (test oxrw=410) 8.73 ng/mL 0.00-0.03 Troponin I (TnI) levels must be interpreted in the context of the presenting symptoms and the clinical findings. Elevated TnI levels indicate myocardial damage, but are not specific for ischemic heart disease. Elevated TnI levels are seen in patients with other cardiac conditions (including myocarditis and congestive heart failure), and slight TnI elevations occur in patients with other conditions, including sepsis, renal failure, acidosis, acute neurological disease, and persistent tachyarrhythmia.[id number] 09:51:00 Test Item Value Reference Range Comments ACTIVATED CLOTTING TIME 109 sec TESTED AT [facility] [address] ([facility]) (test gesf=487) [facility] [address] HEMOGLOBIN [id number] 09:10:00 Test Item Value Reference Range Comments HEMOGLOBIN A1C ([facility]) (test rfay=306) 5.7 % 4.3-6.1 TSH/FREE T4 IF [id number] 07:37:00 Test Item Value Reference Range Comments THYROID STIMULATING HORMONE (BEAKER) (test 3.74 uIU/mL 0.35-4.94 clei=705) LIPID [id number] 07:27:00 Test Item Value Reference Range Comments TRIGLYCERIDES (BEAKER) (test 327 mg/dL Specimen moderately kcav=980) hemolyzed CHOLESTEROL (BEAKER) (test 172 mg/dL Specimen moderately fsur=608) hemolyzed HDL CHOLESTEROL (BEAKER) (test 29 mg/dL ijki=283) LDL CHOLESTEROL CALCULATED 78 mg/dL (BEAKER) (test crpi=730) Triglyceride Reference Range: Low Risk <150 Borderline 150- 199 High Risk 200-499 Very High Risk >=500Cholesterol Reference Range: Low Risk <200 Borderline 200-239 High Risk > 240HDL Cholesterol Reference Range: Low Risk >=60 High Risk <40LDL Cholesterol Reference Range: Optimal <100 Near Optimal 100-129 Borderline 130-159 High 160-189 Very High >=190 Specimen slightly lipemicHEPATIC FUNCTION [id number] 07:27: 00 Test Item Value Reference Range Comments TOTAL PROTEIN (BEAKER) (test 7.1 gm/dL 6.0-8.3 Specimen moderately hemolyzed skmx=135) ALBUMIN (BEAKER) (test 3.6 g/dL 3.5-5.0 Specimen moderately hemolyzed wvpf=7043) BILIRUBIN TOTAL (BEAKER) (test 0.2 mg/dL 0.2-1.2 Specimen moderately hemolyzed jetf=820) BILIRUBIN DIRECT (BEAKER) < mg/dL 0.1-0.5 Specimen moderately hemolyzed (test pkge=225) ALKALINE PHOSPHATASE (BEAKER) 99 U/L 40-150 (test sxcf=957) AST (SGOT) (BEAKER) (test 87 U/L 5-34 Specimen moderately hemolyzed fxcd=800) ALT (SGPT) (BEAKER) (test 34 U/L 6-55 Specimen moderately znmk=493) hemolyzed Specimen slightly lipemicTROPONIN [id number] 07:26:00 Test Item Value Reference Range Comments TROPONIN I (BEAKER) (test echf=739) 3.77 ng/mL 0.00-0.03 Troponin I (TnI) levels must be interpreted in the context of the presenting symptoms and the clinical findings. Elevated TnI levels indicate myocardial damage, but are not specific for ischemic heart disease. Elevated TnI levels are seen in patients with other cardiac conditions (including myocarditis and congestive heart failure), and slight TnI elevations occur in patients with other conditions, including sepsis, renal failure, acidosis, acute neurological disease, and persistent tachyarrhythmia.[id number] 07:25:00 Test Item Value Reference Range Comments MAGNESIUM (BEAKER) (test 2.4 mg/dL 1.6-2.6 Specimen moderately hemolyzed olvx=375) BASIC METABOLIC [id number] 07:25:00 Test Item Value Reference Range Comments SODIUM (BEAKER) (test 137 meq/L 136-145 qzaf=607) POTASSIUM (BEAKER) (test 4.3 meq/L 3.5-5.1 Specimen moderately qygr=547) hemolyzed CHLORIDE (BEAKER) (test 105 meq/L 98-107 dujx=432) CO2 (BEAKER) (test 22 meq/L 22-29 bdpb=291) BLOOD UREA NITROGEN 16 mg/dL 7-21 (BEAKER) (test czss=906) CREATININE (BEAKER) (test 0.70 mg/dL 0.57-1.25 Specimen moderately idbl=330) hemolyzed GLUCOSE RANDOM (BEAKER) 148 mg/dL 70-105 (test ufuk=789) CALCIUM (BEAKER) (test 9.4 mg/dL 8.4-10.2 izsd=590) EGFR (BEAKER) (test 116 mL/min/1.73 sq m ESTIMATED GFR IS NOT sith=8552) ACCURATE CREATININE CLEARANCE IN PREDICTING GLOMERULAR FILTRATION RATE. ESTIMATED GFR IS NOT APPLICABLE FOR DIALYSIS PATIENTS. [id number] 06:50:00 Test Item Value Reference Range Comments ACTIVATED CLOTTING TIME 153 sec TESTED AT [facility] [address] (BEAKER) (test fnsj=571) [facility] [address] B-TYPE NATRIURETIC FACTOR (BNP)2018-08-07 06:31:00 Test Item Value Reference Range Comments B-TYPE NATRIURETIC PEPTIDE (BEAKER) (test frqf=357) 18 pg/mL 0-100 CBC W/PLT COUNT & AUTO [id number] 06:13:00 Test Item Value Reference Range Comments WHITE BLOOD CELL COUNT (BEAKER) (test dguj=117) 9.7 K/ L 3.5-10.5 RED BLOOD CELL COUNT (BEAKER) (test ejjn=523) 4.41 M/ L 4.63-6.08 HEMOGLOBIN (BEAKER) (test xkya=191) 13.7 GM/DL 13.7-17.5 HEMATOCRIT (BEAKER) (test dmpo=912) 40.2 % 40.1-51.0 MEAN CORPUSCULAR VOLUME (BEAKER) (test oujf=274) 91.2 fL 79.0-92.2 MEAN CORPUSCULAR HEMOGLOBIN (BEAKER) (test 31.1 pg 25.7-32.2 mour=207) MEAN CORPUSCULAR HEMOGLOBIN CONC (BEAKER) (test 34.1 GM/DL 32.3-36.5 zimb=352) RED CELL DISTRIBUTION WIDTH (BEAKER) (test 12.7 % 11.6-14.4 ggsg=520) PLATELET COUNT (BEAKER) (test qgjb=676) 244 K/CU MM 150-450 MEAN PLATELET VOLUME (BEAKER) (test reto=639) 9.3 fL 9.4-12.4 NUCLEATED RED BLOOD CELLS (BEAKER) (test 0 /100 WBC 0-0 tydw=733) NEUTROPHILS RELATIVE PERCENT (BEAKER) (test 70 % fhbn=043) LYMPHOCYTES RELATIVE PERCENT (BEAKER) (test 24 % igue=371) MONOCYTES RELATIVE PERCENT (BEAKER) (test 6 % vzqj=042) EOSINOPHILS RELATIVE PERCENT (BEAKER) (test 1 % xbln=695) BASOPHILS RELATIVE PERCENT (BEAKER) (test 0 % ojof=311) NEUTROPHILS ABSOLUTE COUNT (BEAKER) (test 6.73 K/ L 1.78-5.38 lotf=056) LYMPHOCYTES ABSOLUTE COUNT (BEAKER) (test 2.27 K/ L 1.32-3.57 qrjd=484) MONOCYTES ABSOLUTE COUNT (BEAKER) (test 0.54 K/ L 0.30-0.82 ximd=387) EOSINOPHILS ABSOLUTE COUNT (BEAKER) (test 0.07 K/ L 0.04-0.54 mppg=197) BASOPHILS ABSOLUTE COUNT (BEAKER) (test 0.04 K/ L 0.01-0.08 bnqp=957) IMMATURE GRANULOCYTES-RELATIVE PERCENT ([facility]) 0 % 0-1 (test swqa=0991) [id number] 03:54:00 Test Item Value Reference Range Comments ACTIVATED CLOTTING TIME 301 sec TESTED AT [facility] [address] ([facility]) (test fviz=822) [facility] [address]
--- OUTSIDE RECORDS SUMMARY | 2019-07-25 10:06 | XMS REPORT | Summary of Care ---
:1960 Author Organization [facility] [place] [address] Care Team Providers Name Role Phone Unavailable Primary Care Provider Unavailable Reason for Visit Reason Comments Initial Visit lipoma of neck Encounter Details Date Type Department Care Team Description 04/07/2019 Office Visit [facility] Mehrdad Arguello Initial Visit ( lipoma Medicine MD [place] of neck ) Otolaryngology [address] [place] [address] [place] [address] [place] [address] Allergies No Known Allergiesdocumented as of this encounter (statuses as of 04/13/2019) Medications Medication Sig Dispensed Refills Start Date End Date Status allopurinol (ZYLOPRIM) Take 300 mg by 1 08/13/2018 Active 300 MG tablet mouth. aspirin EC 81 MG tablet Take 81 mg by 11 08/10/2018 Active mouth daily. atorvastatin (LIPITOR) Take 80 mg by 0 08/10/2018 08/10/2019 Active 80 MG tablet mouth. clopidogrel (PLAVIX) 75 Take 75 mg by 0 08/11/2018 08/11/2019 Active MG tablet mouth. escitalopram (LEXAPRO) Take 20 mg by 0 11/11/2017 Active 20 MG tablet mouth. metoprolol (TOPROL-XL) Take 12.5 mg by 0 08/11/2018 08/11/2019 Active 25 MG XL tablet mouth. busPIRone (BUSPAR) 15 Take 15 mg by 2 08/14/2018 Active MG tablet mouth two times daily. documented as of this encounter (statuses as of 04/13/2019) Active Problems Not on filedocumented as of this encounter (statuses as of 04/13/2019) Social History Tobacco Use Types Packs/Day Years Used Date Former Smoker Smokeless Tobacco: Former User Sex Assigned at Date Recorded Not on file Job Start Date Occupation Industry Not on file Not on file Not on file Travel History Travel Start Travel End No recent travel history available. documented as of this encounter Last Filed Vital Signs Vital Sign Reading Time Taken Comments Blood Pressure 128/81 04/07/2019 2:47 PM CDT Pulse 75 04/07/2019 2:47 PM CDT Temperature - - Respiratory Rate - - Oxygen Saturation - - Inhaled Oxygen Concentration - - Weight 108.9 kg (240 lb) 04/07/2019 2:47 PM CDT Height - - Body Mass Index 31.66 01/05/2019 12:38 PM CDT documented in this encounter Progress Notes Mehrdad Arguello MD - 04/07/2019 3:15 PM CDT Chief Complaint Patient presents with Initial Visit lipoma of neck History of Present Illness: 58 y.o.male h/o CAD s/p [place] in 07/2018, HLD, HTN presents today with a posterior neck lipoma. The pt states that the posterior neck lipoma has been enlarging over 12-15 years.He states that it makes it difficult to turn his head. It has had increased tenderness when lying onit. The pt has been stented and is on antiplatelet therapy. No fever, chills, otalgia, odynophagia, dysphagia, dyspnea, voice changes, cough, or hemoptysis. Past Medical History: Diagnosis Date CAD (coronary artery disease) Hyperlipidemia Hypertension Past Surgical History: Procedure Laterality Date HX CATARACT-L HX ELBOW BURSA SURGERY 3 times in one year HX GALLBLADDER REMOVAL HX HEART SURGERY 08/06/2018 stent put in HX LIPOMA RESECTION Right HX VASECTOMY Social History Tobacco Use Smoking status: Former Smoker Smokeless tobacco: Former User Substance Use Topics Alcohol use: Not on file Drug use: Not on file otherwise not related to this illness No family history on file. otherwise not related to this illness Allergies: Patient has no known allergies. Medications: No outpatient medications have been marked as taking for the 04/07/19 encounter (Office Visit) with Mehrdad Arguello MD. Review of Systems: Constitutional: No fevers, chills, or weight loss. Eyes: No acute vision changes, eye pain, or scotomas Neurological: No seizures or paralysis. HEENT: See HPI Respiratory: No dyspnea or hemoptysis. Cardiovascular: No chest pain or palpitations. Gastrointestinal: No abdominal pain or melena. Genitourinary: No dysuria, urinary frequency, or hematuria Integumentary: No rashes, pruritis, or new lesions Musculoskeletal: No joint pain, no joint swelling Hematological/lymphatic: No easy bruising or spontaneous gingival bleeding Physical Exam: BP 128/81 | Pulse 75 | Wt 240 lb (108.9 kg) | BMI 31.66 kg/m General: NAD, Strong voice. Able to hear conversational speech Head/Face: Normocephalic. No paranasal sinus tenderness, No parotid/ submandibular gland mass, facialmovement symmetric. Eyes: PERRL. EOMI, Conjugate gaze. No nystagmus at rest or on lateral gaze Ears: B EAC Clear. B TM intact. B middle ears aerated Nose/Nasopharynx: [place] moist mucous membranes. Septum midline and intact. No masses or lesions. No rhinorrhea or epistaxis. Oral cavity/Oropharynx: Good dentition. No trismus. Tongue/uvula midline. Tongue fully mobile. Posterior oropharynx without erythema, edema, or exudates. Buccal mucosa and gingiva without lesions. No masses. FOM/BOT soft to palpation. Palatal elevation symmetric. Neck: Supple, + 12 cm posterior neck mass, well circumscribed, mobile. No overlying skin changes. Respiratory: Symmetric chest rise. No accessory muscle use. No retractions Integumentary: No rashes, no petechiae, no ecchymosis Lymphatics: No cervical lymphadenopathy Neurological/Psych: A&Ox3. CN II-XII grossly intact. DIAGNOSIS: 58 yo male with large posterior neck lipoma PLAN: -Obtain CT neck -Pt would benefit from surgical excision -I have explained risks of surgery including recurrence, numbness, wound infection -He expresses good understanding and desires to proceed Nathan Arguello M.D. documented in this encounter Plan of Treatment Date Type Specialty Care Team Description 05/25/2019 Office Visit Cardiology Luz Marina Hull MD [address] [place] [address] [phone] Health Maintenance Due Date Last Done Comments COLON CANCER SCREENING: COLONOSCOPY 1961 TETANUS SHOT (ADULT) 1976 BMI FOLLOW UP PLAN 1979 HEPATITIS C SCREENING 1979 HIV SCREENING 1979 FLU VACCINE > 6 MONTHS 01/21/2019 documented as of this encounter Results Not on filedocumented in this encounter Visit Diagnoses Diagnosis Lipoma of neck - Primary Lipoma of other skin and subcutaneous tissue documented in this encounter Insurance Payer Benefit Plan / Subscriber ID Effective Dates Phone Address Type Group [facility] OUT OF STATE xxxxxxxxxxxx 2013-Present [address] PPO [facility] BCBS - [facility] [id number] documented as of this encounter"
[2019-07-25] MEDS ORDERED: MORPHINE 4 MG/ML SYR ONE (10:45)
[2019-07-25] MEDS ORDERED: ONDANSETRON 4 MG/2 ML VIAL ONE (10:46)
[2019-07-25] MEDS ORDERED: NA CHLORIDE 0.9% 1,000 ML ONE (10:46)
[2019-07-25 10:58] LABS: Urine Blood 3+ (NEG); Urine Glucose NEGATIVE (NEG); Urine Protein NEGATIVE (NEG)
[2019-07-25 10:58] LABS: Absolute Lymphocytes (CBC) 1.6 K/uL (0.7-4.9); Basophils % 0.6 % (0-1.3); Hematocrit 44.7 % (39.6-49.0); Lymphocytes % 11.5 % (15.3-44.8); RBC Red Blood Cell Count 4.79 M/uL (4.33-5.43)
[2019-07-25 11:07] LABS: Bilirubin Direct 0.1 mg/dL (0-0.2); Bilirubin Total 0.4 mg/dL (0.2-1.0); Potassium 4.6 mmol/L (3.5-5.1); Protein, Total 7.7 g/dL (6.4-8.2)
[2019-07-25] MEDS ORDERED: KETOROLAC 30 MG/ML INJ ONE (11:16)
--- NOTE | 2019-07-25 11:36 | RAD REPORT ---
EXAM DESCRIPTION: CT - Stone Protocol - 07/25/2019 11:04 am CLINICAL HISTORY: FLANK PAIN, changes in right flank and right lower quadrant COMPARISON: No comparison TECHNIQUE: Axial 5 mm thick images were obtained without oral or IV contrast. The [id number] span s the entirety of the system partially obscuring uppermost abdomen and lung bases. All CT scans are performed using dose optimization technique as appropriate and may include automated exposure control or mA/KV adjustment according to patient size. FINDINGS: Mild to moderate hydronephrosis of the right collecting system present down to the UVJ lev el. There is a 2- 3 millimeter right-side UVJ calculus. A 3 millimeter upper pole nonobstructing calc ulus present on the right. Mild to moderate fluid in stranding seen in the perinephric fat. There is edema along the course of the right ureter. No suspicious renal masses. Isodense masses and pyeloneph ritis are not excluded on a stone protocol CT scan. Partially filled urinary bladder shows no suspici ous finding. No significant adrenal finding. Liver is prominent in size. No focal lesions seen on noncontrast imaging. Mild fatty infiltration pat tern is present. Spleen and pancreas show no suspicious findings. Cholecystectomy clips are present. No biliary tree dilatation. No suspicious bowel findings. Appendix is normal. No hernia, mass or bulky lymphadenopathy noted. No free air, free fluid or inflammatory stranding. No significant bony abnormality. Arterial tree calcifications are present. IMPRESSION: Mild to moderate hydronephrosis of the right collecting system secondary to a 2-3 mm rig ht UVJ calculus. Isodense masses and pyelonephritis are not excluded on stone protocol technique. Prominent size to a mildly fatty infiltrated liver. No focal lesion on noncontrast imaging.
[2019-07-25 11:37] LABS: Urine Bacteria <20 /HPF (NONE SEEN); Urine Culture Reflex Order REFLEXED
[2019-07-25 11:38] LABS: Urine Yeast PRESENT (NONE SEEN)
[2019-07-25] MEDS ORDERED: TAMSULOSIN 0.4 MG SR CAP ONE (12:07)
[2019-07-25] MEDS ORDERED: MAGNESIUM SULFATE 1 gm IVPB 1 GM/100 ML BAG IV ONE (12:07)
[2019-07-25] MEDS ORDERED: CEFTRIAXONE/SWI 1gm 1 GM/10 ML SYR ONE (12:08)
--- NOTE | 2019-07-25 12:37 | ER ---
Nurse's Notes [facility] Name: Remberto Diaz Age: 59 yrs Sex: Male : 1960 Arrival Date: 07/25/2019 Time: 10:03 Bed 17 Private MD: Diagnosis: Calculus of ureter-right Presentation: 07/25 10:14 Presenting complaint: Patient states: right low back pain, RLQ pain started 2 months sv ago but last night the pain intensified and started vomiting and urine has been "dribbling". Tramadol 2 tabs taken at 0600 today. Transition of care: patient was not received from another setting of care. Onset of symptoms was July 24, 2019. Risk Assessment: Do you want to hurt yourself or someone else? Patient reports no desire to harm self or others. Initial Sepsis Screen: Does the patient meet any 2 criteria? No. Patient's initial sepsis screen is negative. Does the patient have a suspected source of infection? No. Patient's initial sepsis screen is negative. Care prior to arrival: Medication(s) given: Tramadol. 10:14 Method Of Arrival: Ambulatory sv 10:14 Acuity: RAKESH 2 sv Triage Assessment: 10:14 General: Appears in no apparent distress. uncomfortable, well developed, Behavior is sv cooperative, appropriate for age, restless. Pain: Complains of pain in right low back, anterior aspect of right lateral abdomen, posterior aspect of right lateral abdomen and right lower quadrant Pain currently is 8 out of 10 on a pain scale. Pain began last night Is continuous, Noted to be grimacing, moaning. Neuro: Level of Consciousness is awake, alert, obeys commands, Oriented to person, place, time, situation, Moves all extremities. Full function Gait is steady. Respiratory: Airway is patent Respiratory effort is even, unlabored, Respiratory pattern is regular, symmetrical. GI: Abdomen is round Reports lower abdominal pain, vomiting. : Reports urine "dribbling". Derm: Skin is intact, Skin is pink, warm \\T\\ dry. Musculoskeletal: Range of motion: intact in all extremities. Historical: - Allergies: 10:24 No Known Allergies; sv - Home Meds: 11:07 allopurinol 300 mg oral tab [Active]; aspirin 81 mg Oral TbEC [Active]; atorvastatin 80 sv mg oral tab [Active]; buspirone 15 mg Oral tab [Active]; Plavix 75 mg Oral tab [Active]; Lexapro 20 mg oral tab [Active]; Toprol XL 25 mg Oral Tb24 [Active]; rosuvastatin 20 mg oral tab [Active]; - PMHx: 10:24 Gout; Myocardial infarction; Hypertension; Anxiety; sv - PSHx: 10:24 Cholecystectomy; heart cath; sv - Immunization history:: Adult Immunizations up to date, Flu vaccine is up to date. - Coronavirus screen:: The patient has NOT traveled to [place], [place], or [place] in the past 14 days. Proceed with normal triage process as indicated. The patient has NOT had contact with known/suspected case of Coronavirus? Proceed with normal triage procedures. - Social history:: Smoking status: Patient reports use of chewing tobacco. Patient uses alcohol, occasionally. - Ebola Screening: : No symptoms or risks identified at this time. Screenin:28 Abuse screen: Denies threats or abuse. Denies injuries from another. Nutritional sv screening: No deficits noted. Tuberculosis screening: No symptoms or risk factors identified. Fall Risk None identified. Assessment: 10:45 Reassessment: Patient appears in no apparent distress at this time. No changes from sv previously documented assessment. Patient and/or family updated on plan of care and expected duration. Pain level reassessed. Patient is alert, oriented x 3, equal unlabored respirations, skin warm/dry/pink. 11:17 Reassessment: Patient appears in no apparent distress at this time. No changes from sv previously documented assessment. Patient and/or family updated on plan of care and expected duration. Pain level reassessed. Patient is alert, oriented x 3, equal unlabored respirations, skin warm/dry/pink. 12:24 Reassessment: Patient appears in no apparent distress at this time. Patient and/or sv family updated on plan of care and expected duration. Pain level reassessed. Patient is alert, oriented x 3, equal unlabored respirations, skin warm/dry/pink. Patient denies pain at this time. Patient states feeling better. Patient states symptoms have improved. 12:45 Reassessment: Pt up for discharge but is receiving magnesium infusion and is to finish sv before discharge. 13:32 Reassessment: Patient appears in no apparent distress at this time. Patient and/or sv family updated on plan of care and expected duration. Pain level reassessed. Patient is alert, oriented x 3, equal unlabored respirations, skin warm/dry/pink. Patient denies pain at this time. Patient states feeling better. Patient states symptoms have improved. Vital Signs: 10:14 BP 163 / 93; Pulse 79; Resp 18; Pulse Ox 100% ; Weight 106.59 kg; Height 6 ft. 1 in. sv (185.42 cm); Pain 8/10; 11:17 BP 152 / 93; Pulse 90; Resp 20; Pulse Ox 98% ; sv 11:17 Pain 5/10; sv 11:47 BP 136 / 65; Pulse 86; Resp 18; Pulse Ox 98% ; sv 12:00 Pain 0/10; sv 12:42 BP 117 / 81; Pulse 83; Resp 16; Pulse Ox 99% ; sv 13:33 BP 110 / 80; Pulse 82; Resp 16; Pulse Ox 100% ; sv 10:14 Body Mass Index 31.00 (106.59 kg, 185.42 cm) sv ED Course: 10:03 Patient arrived in ED. fj1 10:08 Rolo Nguyen PA is PHCP. cp 10:08 Rolo Diaz MD is Attending Physician. cp 10:14 Alicia Swartz, RACHELLE is Primary Nurse. sv 10:14 Arm band placed on Patient placed in an exam room, on a stretcher, on pulse oximetry. sv 10:14 Patient has correct armband on for positive identification. Bed in low position. Call sv light in reach. Side rails up X 1. Adult w/ patient. Pulse ox on. NIBP on. 10:16 Triage completed. sv 10:25 Urine collected: clean catch specimen, clear. sv 10:30 Inserted saline lock: 18 gauge in left antecubital area, using aseptic technique. Blood sv collected. Flushed left antecubital with 5 ml normal saline. 10:[address] via stretcher. sv 11:03 CT completed. Patient tolerated procedure well. Patient moved back from CT. mw3 11:04 CT Stone Protocol In Process Unspecified. EDMS 11:08 Patient moved back from CT. sv 11:44 Urine Culture Sent. sv 12:36 Lizzy Evans MD is Referral Physician. cp 12:[address] Scan. sv 13:33 No provider procedures requiring assistance completed. IV discontinued, intact, sv bleeding controlled, No redness/swelling at site. Pressure dressing applied. Administered Medications: 10:45 Drug: Zofran 4 mg Route: IVP; Site: left antecubital; sv 11:17 Follow up: Response: No adverse reaction; Nausea is decreased sv 10:45 Drug: NS 0.9% 1000 ml Route: IV; Rate: 1000 ml/hr; Site: left antecubital; sv 11:30 Follow up: Response: No adverse reaction; IV Status: Completed infusion; IV Intake: sv 1000ml 10:47 Drug: morphine 4 mg {Note: RASS3.} Route: IVP; Site: left antecubital; sv 11:17 Follow up: Pain 5/10 Adult; Response: No adverse reaction; Pain is decreased; RASS: sv Agitated (+2) 11:17 Drug: Ketorolac 15 mg Route: IVP; Site: left antecubital; sv 12:00 Follow up: Pain 0/10 Adult; Response: No adverse reaction; Marked relief of symptoms; sv Pain is decreased; RASS: Alert and Calm (0) 12:24 Drug: Rocephin 1 grams Route: IV; Rate: calculated rate; Site: left antecubital; sv 12:26 Follow up: Response: No adverse reaction; IV Status: Completed infusion; IV Intake: 10mlsv 12:25 Drug: Flomax 0.4 mg Route: PO; sv 13:30 Follow up: Response: No adverse reaction sv 12:26 Drug: Magnesium Sulfate 1 grams Route: IVPB; Infused Over: 1 hrs; Site: left sv antecubital; 13:31 Follow up: Response: No adverse reaction; IV Status: Completed infusion; IV Intake: sv 100ml Intake: 11:30 IV: 1000ml; Total: 1000ml. sv 12:26 IV: 10ml; Total: 1010ml. sv 13:31 IV: 100ml; Total: 1110ml. sv Outcome: 12:37 Discharge ordered by . cp 13:33 Patient left the ED. sv 13:33 Discharged to home ambulatory, with family. sv 13:33 Condition: stable 13:33 Discharge instructions given to patient, family, Instructed on discharge instructions, follow up and referral plans. no drinking with medication, no driving heavy equipment, medication usage, Demonstrated understanding of instructions, follow-up care, medications, Prescriptions given X 4. Signatures: Dispatcher [employer] Alicia Grimm RN RN Rolo Lind PA PA cp Willis, Michelle mw3 Prosper Ch [email or web address]
--- NOTE | 2019-07-25 12:38 | EDPHYS ---
Physician Documentation [facility] Name: Remberto Diaz Age: 59 yrs Sex: Male : 1960 Arrival Date: 07/25/2019 Time: 10:03 Bed 17 Private MD: ED Physician Rolo Diaz HPI: 07/25 10:30 This 59 yrs old Male presents to ER via Ambulatory with complaints of cp Abdominal Pain, Low Back Pain. 10:30 The patient presents with abdominal pain right lower quadrant. Onset: The cp symptoms/episode began/occurred this morning. The symptoms radiate to the right flank. Associated signs and symptoms: Pertinent positives: nausea, Pertinent negatives: blood in stools, chest pain, constipation, diarrhea, fever, shortness of breath, testicular pain, vomiting. The symptoms are described as constant. Modifying factors: the symptoms are aggravated by pressure. Historical: - Allergies: 10:24 No Known Allergies; sv - Home Meds: 11:07 allopurinol 300 mg oral tab [Active]; aspirin 81 mg Oral TbEC [Active]; atorvastatin 80 sv mg oral tab [Active]; buspirone 15 mg Oral tab [Active]; Plavix 75 mg Oral tab [Active]; Lexapro 20 mg oral tab [Active]; Toprol XL 25 mg Oral Tb24 [Active]; rosuvastatin 20 mg oral tab [Active]; - PMHx: 10:24 Gout; Myocardial infarction; Hypertension; Anxiety; sv - PSHx: 10:24 Cholecystectomy; heart cath; sv - Immunization history:: Adult Immunizations up to date, Flu vaccine is up to date. - Coronavirus screen:: The patient has NOT traveled to [place], [place], or [place] in the past 14 days. Proceed with normal triage process as indicated. The patient has NOT had contact with known/suspected case of Coronavirus? Proceed with normal triage procedures. - Social history:: Smoking status: Patient reports use of chewing tobacco. Patient uses alcohol, occasionally. - Ebola Screening: : No symptoms or risks identified at this time. ROS: 10:35 Constitutional: Negative for body aches, chills, fever, poor PO intake. cp 10:35 Eyes: Negative for injury, pain, redness, and discharge. cp 10:35 ENT: Negative for drainage from ear(s), ear pain, sore throat, difficulty swallowing, difficulty handling secretions. 10:35 Cardiovascular: Negative for chest pain, palpitations. 10:35 Respiratory: Negative for cough, shortness of breath, wheezing. 10:35 Abdomen/GI: Positive for abdominal pain, nausea, of the right lower quadrant, Negative for vomiting, diarrhea, constipation. 10:35 Back: Positive for flank pain, on the right. 10:35 : Positive for small amounts, Negative for testicular pain 10:35 Skin: Negative for rash. 10:35 Neuro: Negative for altered mental status, headache, weakness. 10:35 All other systems are negative. Exam: 10:45 Constitutional: The patient appears in no acute distress, alert, awake, cp non-diaphoretic, non-toxic, well developed, well nourished, in obvious pain, uncomfortable. 10:45 Head/Face: Normocephalic, atraumatic. cp 10:45 Eyes: Periorbital structures: appear normal, Conjunctiva: normal, no exudate, no injection, Sclera: no appreciated abnormality, Lids and lashes: appear normal, bilaterally. 10:45 ENT: External ear(s): are unremarkable, Nose: is normal, Mouth: Lips: moist, Oral mucosa: moist, Posterior pharynx: Airway: no evidence of obstruction, patent. 10:45 Chest/axilla: Inspection: normal, Palpation: is normal, no crepitus, no tenderness. 10:45 Cardiovascular: Rate: normal, Rhythm: regular. 10:45 Respiratory: the patient does not display signs of respiratory distress, Respirations: normal, no use of accessory muscles, no retractions, labored breathing, is not present, Breath sounds: are clear throughout, no decreased breath sounds, no stridor, no wheezing. 10:45 Abdomen/GI: Inspection: abdomen appears normal, Palpation: soft, in all quadrants, moderate abdominal tenderness, in the anterior aspect of right lateral abdomen, posterior aspect of right lateral abdomen and right lower quadrant, rebound tenderness, is not appreciated, voluntary guarding, is elicited in the anterior aspect of right lateral abdomen, posterior aspect of right lateral abdomen and right lower quadrant. 10:45 Back: pain, that is moderate, of the right low back. 10:45 Skin: no rash present. Vital Signs: 10:14 BP 163 / 93; Pulse 79; Resp 18; Pulse Ox 100% ; Weight 106.59 kg; Height 6 ft. 1 in. sv (185.42 cm); Pain 8/10; 11:17 BP 152 / 93; Pulse 90; Resp 20; Pulse Ox 98% ; sv 11:17 Pain 5/10; sv 11:47 BP 136 / 65; Pulse 86; Resp 18; Pulse Ox 98% ; sv 12:00 Pain 0/10; sv 12:42 BP 117 / 81; Pulse 83; Resp 16; Pulse Ox 99% ; sv 13:33 BP 110 / 80; Pulse 82; Resp 16; Pulse Ox 100% ; sv 10:14 Body Mass Index 31.00 (106.59 kg, 185.42 cm) sv MDM: 10:16 Patient medically screened. [facility] 12:35 Data reviewed: vital signs, nurses notes, lab test result(s), radiologic studies, CT cp scan. 12:35 Counseling: I had a detailed discussion with the patient and/or guardian regarding: the cp historical points, exam findings, and any diagnostic results supporting the discharge/admit diagnosis, lab results, radiology results, to return to the emergency department if symptoms worsen or persist or if there are any questions or concerns that arise at home. 07/25 10:23 Order name: Basic Metabolic Panel; Complete Time: 11:10 cp 07/25 10:23 Order name: CBC with Diff; Complete Time: 11:03 cp 07/25 11:03 Interpretation: Normal except: WBC 14.3; ERICK% 81.2; LYM% 11.5; NEUT A 11.6. cp 07/25 10:23 Order name: Creatinine for Radiology; Complete Time: 12:00 cp 07/25 10:23 Order name: Hepatic Function; Complete Time: 11:10 cp 07/25 10:23 Order name: Lipase; Complete Time: 11:10 cp 07/25 10:23 Order name: Urine Microscopic Only; Complete Time: 12:00 cp 07/25 10:40 Order name: Urine Dipstick--Ancillary (enter results); Complete Time: 11:03 ms 07/25 11:03 Interpretation: Normal except: UBLD 3+. cp 07/25 10:44 Order name: CT Stone Protocol; Complete Time: 12:00 cp 07/25 11:40 Order name: Urine Culture EDAR 07/25 10:23 Order name: IV Saline Lock; Complete Time: 10:42 cp 07/25 10:23 Order name: Labs collected and sent; Complete Time: 10:42 cp 07/25 10:23 Order name: Urine Dipstick-Ancillary (obtain specimen); Complete Time: 10:41 cp Administered Medications: 10:45 Drug: Zofran 4 mg Route: IVP; Site: left antecubital; sv 11:17 Follow up: Response: No adverse reaction; Nausea is decreased sv 10:45 Drug: NS 0.9% 1000 ml Route: IV; Rate: 1000 ml/hr; Site: left antecubital; sv 11:30 Follow up: Response: No adverse reaction; IV Status: Completed infusion; IV Intake: sv 1000ml 10:47 Drug: morphine 4 mg {Note: RASS3.} Route: IVP; Site: left antecubital; sv 11:17 Follow up: Pain 5/10 Adult; Response: No adverse reaction; Pain is decreased; RASS: sv Agitated (+2) 11:17 Drug: Ketorolac 15 mg Route: IVP; Site: left antecubital; sv 12:00 Follow up: Pain 0/10 Adult; Response: No adverse reaction; Marked relief of symptoms; sv Pain is decreased; RASS: Alert and Calm (0) 12:24 Drug: Rocephin 1 grams Route: IV; Rate: calculated rate; Site: left antecubital; sv 12:26 Follow up: Response: No adverse reaction; IV Status: Completed infusion; IV Intake: 10mlsv 12:25 Drug: Flomax 0.4 mg Route: PO; sv 13:30 Follow up: Response: No adverse reaction sv 12:26 Drug: Magnesium Sulfate 1 grams Route: IVPB; Infused Over: 1 hrs; Site: left sv antecubital; 13:31 Follow up: Response: No adverse reaction; IV Status: Completed infusion; IV Intake: sv 100ml Disposition: 07/26 07:41 Co-signature as Attending Physician, Rolo Diaz MD I agree with the assessment and henrique plan of care. Disposition: 07/25/19 12:37 Discharged to Home. Impression: Calculus of ureter - right. - Condition is Stable. - Discharge Instructions: Kidney Stones, Renal Colic. - Prescriptions for Diflucan 150 mg Oral Tablet - take 1 tablet by ORAL route one time for 1 day; 1 tablet. Tylenol- Codeine #3 300-30 mg Oral Tablet - take 2 tablets by ORAL route every 6 hours As needed no driving while taking medication; 20 tablet. Zofran 4 mg Oral Tablet - take 1 tablet by ORAL route every 12 hours As needed; 20 tablet. Flomax 0.4 mg Oral Capsule, Sust. Release 24 hr - take 1 capsule by ORAL route once daily As needed 1/2 hour following the same meal each day; 5 capsule. Cipro 500 mg Oral Tablet - take 1 tablet by ORAL route every 12 hours for 7 days; 14 tablet. - Medication Reconciliation Form, Thank You Letter, Antibiotic Education, Prescription Opioid Use form. - Follow up: Lizzy Evans MD; When: 1 - 2 days; Reason: Worsening of condition. - Problem is new. - Symptoms have improved. Signatures: Dispatcher [employer] Alicia Grimm RN RN sv Anderson, Corey, MD MD cha Page, Corey, PA PA cp Corrections: (The following items were deleted from the chart) 07/25 13:33 12:37 07/25/2019 12:37 Discharged to Home. Impression: Calculus of ureter - right. sv Condition is Stable. Forms are Medication Reconciliation Form, Thank You Letter, Antibiotic Education, Prescription Opioid Use. Follow up: Lizzy Evans; When: 1 - 2 days; Reason: Worsening of condition. Problem is new. Symptoms have improved. cp
[2019-07-25 13:56] VITALS: BP 110/80; O2SAT 100
== END 2019-07-25 13:33 | disposition home or self-care (01) ==
LOC: ER 10:02
DX: N20.1 Calculus of ureter (principal); F17.220 Nicotine dependence, chewing tobacco, uncomplicated; I10 Essential (primary) hypertension; F41.9 Anxiety disorder, unspecified; I25.2 Old myocardial infarction; Z79.01 Long term (current) use of anticoagulants; Z79.82 Long term (current) use of aspirin
CPT/HCPCS: 96365; 96361; 87088; 85025; 87086; 80048; 36415; 80076; 83690; 76377; 74176; 96375; 99284; J3475; J0696; J7030; J2405; 81003; 81015